=== PATIENT | male | born 1955 | race Caucasian/White ===

== ENCOUNTER 2023-08-29 15:05 | Emergency (ER) | payer OTHER, SELFPAY ==
[2023-08-29 15:09] VITALS: BP 173/102; PULSE 93; RESP 18; TEMP 36.5; O2SAT 98; BMI 25.8
--- NOTE | 2023-08-29 15:25 | ED_ITS ---
HPI - General Adult General Chief complaint: Skin/Abscess/Foreign Body Stated complaint: RASH Time Seen by Provider: 08/29/23 15:08 Source: patient and family Mode of arrival: walk-in History of Present Illness HPI narrative: This patient is here for evaluation of a skin rash. He has had it for over 2 months. He is seeing 2 nurse practitioners and his neurologist. He has been placed on low potency topical steroids twice. He does not and has not had any itching. He has not and does not have any pain or discomfort in the area. He is not running a fever. The area is self-limiting and has not gotten any bigger or any smaller but is got slightly accountant assistant in color with the current topical steroid. Does not have any other skin or dermatitis type condition. He has no other systemic symptoms or fever. He does describe scraping his arm on a piece of plumbing in his house but it did not bleed at the time. He also describe pulling weeds in his yard but never had any itching at the time or subsequent to that time. Related Data Allergies Allergy/AdvReac Type Severity Reaction Status Date / Time meperidine [From Demerol] Allergy Severe Verified 08/29/23 15:23 Penicillins Allergy Severe Verified 08/29/23 15:23 poison sumac extract Allergy Severe Verified 08/29/23 15:23 [facility] Medical History (Updated 08/29/23 @ 15:29 by Mainor Dumont MD) Parkinson disease ?G20.A1 - Parkinson's disease without dyskinesia, without mention of fluctuations (ICD-10) Exam Narrative Exam Narrative: Awake alert pleasant does have parkinsonism. He has normal vital signs does not appear ill his blood pressure slightly elevated. His skin and integument of trunk torso or extremities is completely normal with the exception of a mild erythematous area over the dorsum of his distal right forearm. It is not circumferential. There is no lymphangitis. It is not tender to the touch is not pruritic. It is not desquamating. There is no vesicles, there is no shingles type lesions. There is no clear vesicles. It is more of a angry erythematous nonraised rash Constitutional Vital Signs, click to edit/add: Last Vital Signs Temp 97.7 F 08/29/23 15:09 Pulse 93 H 08/29/23 15:09 Resp 18 08/29/23 15:09 BP 173/102 H 08/29/23 15:09 Pulse Ox 98 08/29/23 15:09 O2 Del Method Room Air 08/29/23 15:09 Course Vital Signs Vital signs: Vital Signs Temperature 97.7 F 08/29/23 15:09 Pulse Rate 93 H 08/29/23 15:09 Respiratory Rate 18 08/29/23 15:09 Blood Pressure 173/102 H 08/29/23 15:09 Pulse Oximetry 98 08/29/23 15:09 Oxygen Delivery Method Room Air 08/29/23 15:09 Temperature 97.7 F 08/29/23 15:09 Pulse Rate 93 H 08/29/23 15:09 Respiratory Rate 18 08/29/23 15:09 Blood Pressure 173/102 H 08/29/23 15:09 Pulse Oximetry 98 08/29/23 15:09 Oxygen Delivery Method Room Air 08/29/23 15:09 Medical Decision Making MDM Narrative Medical decision making narrative: This patient's been treated with topical steroids but weaker in nature. It is mostly consistent with a atopic type dermatitis. It does not look viral or bacterial in nature. Discharge Plan Discharge Chief Complaint: Skin/Abscess/Foreign Body Clinical Impression: Atopic dermatitis, unspecified Patient Disposition: Home, Self-Care Time of Disposition Decision: 15:29 Additional Instructions: Start betamethasone, stop other creams. Leave the area open at night and do not cover Referrals: ALEKSEY LAI [Primary Care Provider] - 1 week Stand Alone Forms: Portal Instructions
--- NOTE | 2023-08-29 15:25 | PC.NURSE ---
area to right wrist / right lower forearm is red. no drainage and not raised. area does not hurt or itch. pt reports area does not get bigger or smaller.
== END 2023-08-29 15:43 | disposition home or self-care (01) ==
PROVIDERS: Emergency Provider Emergency Medicine Emergency Medical Services; PCP Nurse Practitioner Family
DX: L20.9 Atopic dermatitis, unspecified (principal); G20.A1 Parkinson's disease without dyskinesia, without mention of fluctuations
CPT/HCPCS: 99283

== ENCOUNTER 2023-10-14 13:02 | Outpatient (RCR) | payer OTHER, SELFPAY | END 2023-10-29 16:55 | disposition home or self-care (01) | LOC: PT 13:02 | PROVIDERS: PCP Nurse Practitioner Family; Visit Provider Family Medicine | DX: M54.41 Lumbago with sciatica, right side (principal); G89.29 Other chronic pain ==

== ENCOUNTER 2023-10-22 12:34 | Outpatient (RCR) | payer OTHER, SELFPAY | END 2023-10-29 16:54 | disposition home or self-care (01) | LOC: PT 12:34 | PROVIDERS: PCP Nurse Practitioner Family; Visit Provider Nurse Practitioner Gerontology | DX: M54.42 Lumbago with sciatica, left side (principal); M54.41 Lumbago with sciatica, right side; G89.29 Other chronic pain; M51.27 Other intervertebral disc displacement, lumbosacral region | CPT/HCPCS: 97110; 97161 ==

== ENCOUNTER 2023-11-28 14:54 | Outpatient (RCR) | payer OTHER, SELFPAY | END 2023-11-30 16:59 | disposition home or self-care (01) | LOC: ST 14:54 | PROVIDERS: PCP Nurse Practitioner Family; Visit Provider Nurse Practitioner Gerontology | DX: G20.A1 Parkinson's disease without dyskinesia, without mention of fluctuations (principal); R13.13 Dysphagia, pharyngeal phase; R47.1 Dysarthria and anarthria | CPT/HCPCS: 92523 ==

== ENCOUNTER 2024-05-12 09:58 | Inpatient (IN) | payer OTHER, SELFPAY ==
[2024-05-12 10:03] VITALS: BP 117/76; PULSE 101; BMI 21.3
[2024-05-12 10:44] LABS: Bilirubin Urine NEGATIVE (NEGATIVE); Blood Urine NEGATIVE (NEGATIVE); Clarity Urine CLEAR (CLEAR); Color Urine YELLOW (YELLOW); Glucose Urine UA NEGATIVE (NEGATIVE); Ketones Urine NEGATIVE (NEGATIVE); Leukocyte Esterase Urine NEGATIVE (NEGATIVE); Nitrite Urine NEGATIVE (NEGATIVE); Protein Urine NEGATIVE (NEG/TRACE); Urine Microscopic Indicated NO; pH Urine 6.5 (5.0-9.0)
--- NOTE | 2024-05-12 10:50 | ED.GENADUL1 ---
HPI HPI - General Adult General Chief complaint: Weakness Stated complaint: URINARY PROBLEMS Time Seen by Provider: 05/12/24 10:01 Source: patient Mode of arrival: ambulance Limitations: no limitations History of Present Illness HPI narrative: Patient presents to ED complaining of generalized weakness and low back pain and difficulty urinating. Patient has a history of Parkinson's and he has severe tremors on exam. Patient states he used to be on medication for his Parkinson's but it made him unable to move and he said he did not tolerate the medications well. He states that he lives in an assisted living home and his girlfriend helps take care of him but he states that he needs more help being taken care of. He was seen yesterday at [facility] and discharged back to his assisted living center. He was seen there for weakness and a fall 3 days prior. He had a negative CT brain and negative CT lumbar spine. No acute fractures but he was complaining of tailbone pain. Today he complains of his tremors and he complains of difficulty urinating. He was able to urinate some but still felt like he had more in there. Ultrasound bladder scan at bedside shows about 120 cc in. Straight cath performed and urine was sent down for UA. Patient denies any new fall but states he is having trouble taking care of himself and even with the help of the girlfriend it is not going well. He denies any chest pain or shortness of breath. He has mild lower abdominal pain. No nausea or vomiting. Vital signs stable. He is a poor historian and a lot of this information was gathered from [facility] record that was sent over from yesterday. Related Data Home Medications ?Medication ?Instructions ?Recorded ?Confirmed cyclobenzaprine 10 mg tablet 10 mg PO TID 08/29/23 05/12/24 lisinopril 20 1 tab PO QAM 08/29/23 05/12/24 mg-hydrochlorothiazide 12.5 mg tablet acetaminophen 500 mg tablet 500 mg PO Q6H PRN pain 05/12/24 05/12/24 (Tylenol Extra Strength) aspirin 81 mg tablet,delayed 81 mg PO DAILY 05/12/24 05/12/24 release (Adult Low Dose Aspirin) bisacodyl 10 mg rectal suppository 10 mg MO DAILY PRN constipation 05/12/24 05/12/24 (Dulcolax (bisacodyl)) buspirone 5 mg tablet 5 mg PO BEDTIME 05/12/24 05/12/24 diclofenac sodium 1 % topical gel 2 g topical TID PRN pain, moderate 05/12/24 05/12/24 docusate sodium 100 mg capsule 100 mg PO DAILY 05/12/24 05/12/24 (Colace) escitalopram oxalate 10 mg tablet 10 mg PO DAILY 05/12/24 05/12/24 famotidine 20 mg tablet 20 mg PO BID 05/12/24 05/12/24 magnesium oxide 400 mg PO DAILY 05/12/24 05/12/24 multivitamin,tx-minerals 1 tab PO DAILY 05/12/24 05/12/24 naproxen sodium 220 mg capsule 220 mg PO Q8H 05/12/24 05/12/24 (Aleve) polyethylene glycol 3350 17 17 g PO DAILY 05/12/24 05/12/24 gram/dose oral powder (ClearLax) sodium chloride 0.65 % nasal spray 1 spray intranasal QDAY 05/12/24 05/12/24 aerosol tamsulosin 0.4 mg capsule 0.4 mg PO DAILY 05/12/24 05/12/24 Allergies Allergy/AdvReac Type Severity Reaction Status Date / Time meperidine (From Demerol) Allergy Severe Rash Verified 05/12/24 10:21 Penicillins Allergy Severe Rash Verified 05/12/24 10:21 poison sumac extract Allergy Severe Rash Verified 05/12/24 10:21 primidone AdvReac Severe paralyzed Verified 05/12/24 12:25 Opioid HPI Opioid Management Most Recent Opioid Data: Last Pain Assessment 05/12/24 14:58 Last ORT Total Score 0 05/12/24 14:09 05/12/24 Last ORT Risk Category Low Risk 05/12/24 14:09 05/12/24 Review of Systems ROS Status of ROS unobtainable due to medical condition [facility] Medical History (Updated 05/12/24 @ 15:27 by Raya Lai DO) Dysphagia ?R13.10 - Dysphagia, unspecified (ICD-10) Muscle weakness (generalized) ?M62.81 - Muscle weakness (generalized) (ICD-10) Hyperlipidemia ?E78.5 - Hyperlipidemia, unspecified (ICD-10) Constipation ?K59.00 - Constipation, unspecified (ICD-10) GERD (gastroesophageal reflux disease) ?K21.9 - Gastro-esophageal reflux disease without esophagitis (ICD-10) HTN (hypertension) ?I10 - Essential (primary) hypertension (ICD-10) Anxiety disorder ?F41.9 - Anxiety disorder, unspecified (ICD-10) Parkinson disease ?G20.A1 - Parkinson's disease without dyskinesia, without mention of fluctuations (ICD-10) Surgical History (Updated 05/12/24 @ 14:28 by Glenis Sims RN) Hx of tonsillectomy ?Z90.89 - Acquired absence of other organs (ICD-10) History of cholecystectomy ?Z90.49 - Acquired absence of other specified parts of digestive tract (ICD-10) Family History (Updated 05/12/24 @ 14:29 by Glenis Sims RN) Brother Family history of diabetes mellitus Sister Family history of CHF (congestive heart failure) Social History (Updated 05/12/24 @ 14:28 by Glenis Sims RN) Within the past year, how often did you have a drink containing alcohol: never Score interpretation: A score less than 4 is consistent with normal alcohol consumption. Smoking status: Former smoker Non-prescribed substance use: denies use Highest level of school completed/degree received: high school graduate Little interest or pleasure in doing things: not at all Feeling down, depressed, or hopeless: not at all Exam Narrative Exam Narrative: Time Seen: [] Vital Signs: [Per nurse's notes.] General: [Alert] slightly lethargic Skin: [Warm, dry, no rash.] Head: [Normocephalic, atraumatic.] Neck: [Supple, trachea midline.] Eye: [Pupils are equal, round and reactive to light, extraocular movements are intact, normal conjunctiva.] Ears, nose, mouth and throat: oral mucosa slightly dry. Patient feels like his tongue is swollen but on exam there is no swelling of the tongue. Cardiovascular: [Regular rate and rhythm, no murmur.] Respiratory: Slightly diminished breath sounds bilateral bases, respirations are non-labored, breath sounds are equal.] Chest wall: [No tenderness, no deformity.] Gastrointestinal: [Soft, mild suprapubic tenderness non distended, normal bowel sounds.] MSK: Tremors x 4 extremities, no calf pain or edema Lymphatics: [No lymphadenopathy.] Psychiatric: [Cooperative, appropriate mood & affect.] Neurological: [Alert and oriented to person, place, time, and situation, no focal neurological deficit observed.] Constitutional Vital Signs, click to edit/add: Last Vital Signs Temp 98.3 F 05/12/24 14:09 Pulse 82 05/12/24 14:09 Resp 18 05/12/24 14:09 BP 158/88 H 05/12/24 14:09 Pulse Ox 95 05/12/24 14:09 O2 Del Method Room Air 05/12/24 14:09 Course Vital Signs Vital signs: Vital Signs Pulse Rate 101 H 05/12/24 10:03 Respiratory Rate 20 05/12/24 10:03 Blood Pressure 117/76 05/12/24 10:03 Temperature 98.3 F 05/12/24 14:09 Pulse Rate 82 05/12/24 14:09 Respiratory Rate 18 05/12/24 14:09 Blood Pressure 158/88 H 05/12/24 14:09 Pulse Oximetry 95 05/12/24 14:09 Oxygen Delivery Method Room Air 05/12/24 14:09 Medical Decision Making MDM Narrative Medical decision making narrative: Patient has Parkinson's that is very poorly controlled. It is causing him to fall multiple times and is a safety issue at this point. He can no longer live alone even with assisted living his girlfriend said it is too much for him to be taken care of. Patient most likely needs to be placed into a higher level of care. Patient is feeling slightly better after the Ativan and the tremors have slowed a little bit. Patient's labs are relatively nonacute. Repeat CT scan of the head does not show any bleed. CT abdomen pelvis does not show any acute abnormality. Patient will be admitted to Dr. Nguyen for further care and most likely placement. Differential Diagnosis Differential Diagnosis: Parkinson's, weakness, falls Medical Records Medical records reviewed: Yes I reviewed the patient's medical records Lab Data Lab results reviewed: Yes I reviewed the patient's lab results Labs: Lab Results 05/12/24 05/12/24 Range/Units 10:25 10:42 WBC 6.9 (4.0-11.0) 10^3/uL RBC 3.41 L (4.70-6.10) 10^6/uL Hgb 11.7 L (14.0-18.0) g/dL Hct 33.9 L (42.0-54.0) % MCV 99.4 H (80.0-94.0) fL MCH 34.3 H (25.9-34.0) pg MCHC 34.5 (29.9-35.2) g/dL RDW 11.8 (11.0-15.0) % Plt Count 253 (150-450) 10^3/uL MPV 9.8 (9.5-13.5) fL Neut % (Auto) 71.4 (43.0-75.0) % Lymph % (Auto) 18.4 L (20.5-60.0) % [place] % (Auto) 5.5 (1.7-12.0) % Eos % (Auto) 3.9 (0.9-7.0) % Baso % (Auto) 0.7 (0.2-2.0) % Neut # (Auto) 4.9 (1.4-6.5) 10^3/uL Lymph # (Auto) 1.3 (1.2-3.8) 10^3/uL [place] # (Auto) 0.4 (0.3-0.8) 10^3/uL Eos # (Auto) 0.3 (0.0-0.7) 10^3/uL Baso # (Auto) 0.1 (0.0-0.1) 10^3/uL Abs Immat Gran (auto) 0.01 (0.00-0.03) 10^3/uL Imm/Tot Granulo (auto) 0.1 (0.0-0.5) % Sodium 143 (136-145) mmol/L Potassium 4.3 (3.5-5.1) mmol/L Chloride 106 (98-107) mmol/L Carbon Dioxide 26.9 (21.0-32.0) mmol/L Anion Gap 14.4 BUN 22.0 H (7.0-18.0) mg/dL Creatinine 0.99 (0.70-1.30) mg/dL Est GFR ( Amer) >60 (>=60 mL/min/1.73m^2) Est GFR (Non-Af Amer) >60 (>=60 mL/min/1.73m^2) BUN/Creatinine Ratio 22.2 Glucose 90 (74-106) mg/dL Calcium 9.2 (8.5-10.1) mg/dL Total Bilirubin 0.7 (0.2-1.0) mg/dL AST 25 (15-37) U/L ALT 12 L (16-63) U/L Alkaline Phosphatase 100 (46-116) U/L Total Protein 6.7 (6.4-8.2) g/dL Albumin 3.3 L (3.4-5.0) g/dL Globulin 3.4 g/dL Albumin/Globulin Ratio 1.0 Urine Color Yellow (YELLOW) Urine Clarity Clear (CLEAR) Urine pH 6.5 (5.0-9.0) Ur Specific Davy 1.020 (1.005-1.025) Urine Protein Negative (NEG/TRACE) mg/dL Urine Glucose (UA) Negative (NEGATIVE) mg/dL Urine Ketones Negative (NEGATIVE) mg/dL Urine Occult Blood Negative (NEGATIVE) Urine Nitrite Negative (NEGATIVE) Urine Bilirubin Negative (NEGATIVE) Urine Urobilinogen 4.0 A (0.2-1.0) EU/dL Ur Leukocyte Esterase Negative (NEGATIVE) Imaging Data CT scan - abdomen: Radiologist's impression: ITS Impressions Abdomen/Pelvis CT 05/12/24 11:00 IMPRESSION: No acute intraperitoneal abnormality Electronically authenticated by: AYLA MARADIAGA Date: 05/12/2024 12:[address] 05/12/24 12:30 IMPRESSION: No acute intracranial abnormalities. Electronically authenticated by: AUSTIN VILCHIS Date: 05/12/2024 13:02 Discharge Plan Discharge Chief Complaint: Weakness Clinical Impression: Parkinson disease, Falls frequently, Weakness Patient Disposition: Admitted as Observation Time of Disposition Decision: 15:27 Condition: Fair Discharge Date/Time: 05/12/24 13:57
[2024-05-12 10:52] LABS: Basophils Absolute Auto 0.1 10^3/uL (0.0-0.1); Basophils Percent Auto 0.7 % (0.2-2.0); Eosinophils Absolute Auto 0.3 10^3/uL (0.0-0.7); Eosinophils Percent Auto 3.9 % (0.9-7.0); Hematocrit 33.9 % (42.0-54.0); Hemoglobin 11.7 g/dL (14.0-18.0); Immature Granulocytes Abs Auto 0.01 10^3/uL (0.00-0.03); Immature Granulocytes Pct Auto 0.1 % (0.0-0.5); Lymphocytes Absolute Auto 1.3 10^3/uL (1.2-3.8); Lymphocytes Percent Auto 18.4 % (20.5-60.0); Mean Corpuscular HGB Conc 34.5 g/dL (29.9-35.2); Mean Corpuscular Hemoglobin 34.3 pg (25.9-34.0); Mean Corpuscular Volume 99.4 fL (80.0-94.0); Mean Platelet Volume 9.8 fL (9.5-13.5); Monocytes Absolute Auto 0.4 10^3/uL (0.3-0.8); Monocytes Percent Auto 5.5 % (1.7-12.0); Neutrophils Absolute Auto 4.9 10^3/uL (1.4-6.5); Neutrophils Percent Auto 71.4 % (43.0-75.0); Platelet Count 253 10^3/uL (150-450); Red Blood Count 3.41 10^6/uL (4.70-6.10); Red Cell Distribution Width 11.8 % (11.0-15.0); White Blood Count 6.9 10^3/uL (4.0-11.0)
--- NOTE | 2024-05-12 11:00 | CT_ITS ---
[address] [address] Patient Name: PENELOPE CHERRY MRN: [id number] date: 1955 Sex: M Assigned Patient Location: ER Current Patient Location: ER Accession/Order Number: [id number] Exam Date: 05/12/2024 11:30 Report Date: 05/12/2024 12:11 At the request of: JOSUE TRINIDAD Procedure: CT abdomen pelvis wo con EXAMINATION: CT abdomen pelvis wo con HISTORY: abd pain COMPARISON: No relevant comparison available. TECHNIQUE: Axial, Coronal, and Sagittal images were created without IV contrast. Dose reduction techniques were achieved by using automated exposure control and/or adjustment of mA and/or kV according to patient size and/or use of iterative reconstruction technique. FINDINGS: LUNG BASES: No visible pulmonary or pleural disease. Coronary atherosclerosis LIVER: No enlargement, atrophy, abnormal density, or significant focal lesion. BILIARY: The gallbladder is absent PANCREAS: Pancreatic atrophy SPLEEN: No enlargement or focal lesion. ADRENALS: No mass or enlargement. KIDNEYS: No mass, obstruction, or calcification. BOWEL/MESENTERY: Moderate amount of stool in the rectum and descending colon. Nonobstructive bowel gas pattern. Suture line with the cecum suggest prior appendectomy AORTA/VASCULAR: No aortic aneurysm. Extensive atherosclerosis RETROPERITONEUM: No mass or adenopathy. LYMPH NODES: No adenopathy. URINARY BLADDER: No visible focal wall thickening, lesion, or calculus. PELVIC ORGANS: No visible mass. Pelvic organs appropriate for patient age. ABDOMINAL WALL: No mass or hernia. BONES: No bony lesion or fracture. OTHER: Negative. CT/CT abdomen pelvis wo con IMPRESSION: No acute intraperitoneal abnormality Electronically authenticated by: AYLA MARADIAGA Date: 05/12/2024 12:11
[2024-05-12] MEDS: LORAZEPAM 2 MG/ML VIAL 0.5 MG IV (11:07)
[2024-05-12 11:10] LABS: Alanine Aminotransferase 12 U/L (16-63); Albumin Level 3.3 g/dL (3.4-5.0); Alkaline Phosphatase 100 U/L (46-116); Anion Gap 14.4; Aspartate Amino Transferase 25 U/L (15-37); BUN Creatinine Ratio 22.2; Bilirubin Total 0.7 mg/dL (0.2-1.0); Calcium 9.2 mg/dL (8.5-10.1); Carbon Dioxide 26.9 mmol/L (21.0-32.0); Chloride 106 mmol/L (98-107); Estimated GFR (African America >60 (>=60 mL/min/1.73m^2); Estimated GFR (Non-African Ame >60 (>=60 mL/min/1.73m^2); Globulin 3.4 g/dL; Glucose 90 mg/dL (74-106); Potassium 4.3 mmol/L (3.5-5.1); Sodium 143 mmol/L (136-145); Total Protein 6.7 g/dL (6.4-8.2)
--- NOTE | 2024-05-12 12:30 | CT_ITS ---
The [address] [address] Patient Name: PENELOPE CHERRY MRN: [id number] date: 1955 Sex: M Assigned Patient Location: ER Current Patient Location: ER Accession/Order Number: [id number] Exam Date: 05/12/2024 12:40 Report Date: 05/12/2024 13:02 At the request of: JOSUE TRINIDAD Procedure: CT head/brain wo con EXAM: CT scan of the head without contrast. Dose reduction technique used: Automated exposure control and/or adjustment of the mA and/or kV according to patient size and/or use of iterative reconstruction technique. REASON FOR EXAM: Altered mental status COMPARISON: None FINDINGS: No intracranial hemorrhage, mass effect, midline shift, fractures or evidence of acute ischemic infarct. No hydrocephalus. Minimal generalized cerebral and cerebellar volume loss. Minimal small vessel gliosis. Paranasal sinuses and mastoid air cells are clear. Remainder unremarkable. CT/CT head/brain wo con IMPRESSION: No acute intracranial abnormalities. Electronically authenticated by: AUSTIN VILCHIS Date: 05/12/2024 13:02
--- NOTE | 2024-05-12 12:56 | PC.NURSE ---
This RN received a call from Amber at [facility] . She reassured pt that his apartment is al locked up and that they have his keys . Pt asked her several questions that she answered. She is aware that he is going to be admitted.
[2024-05-12 13:55] VITALS: BP 147/90; PULSE 84; TEMP 37.1; O2SAT 95
[2024-05-12 14:09] VITALS: BP 158/88; PULSE 82; TEMP 36.8; O2SAT 95; BMI 21.2
--- NOTE | 2024-05-12 15:14 | P.HP_ITS ---
HPI H&P: HPI History of Present Illness Chief complaint: URINARY PROBLEMS/PARKINSONS/WEAKNESS/FALLS Narrative: Patient presented to the emergency room with difficulty urinating. Also tremor has become much worse in the last couple of days. He has been tried on Mysoline for in the past but patient got locked up practically paralyzed from the description. Not tried on other medications for that. Recent change in medications is required him to increase his prostate medication. Unable to void at all today. Patient has significant postvoid residual and is admitted for workup and treatment of same When I saw patient up on the medical surgical floor seem very uncomfortable, cecy mor very pronounced. Difficulty holding his phone. Unable to manipulate a text message. Opioid HPI Opioid Management Most Recent Pain and Opioid Data: Last Pain Assessment 05/12/24 16:50 Last ORT Total Score 0 05/12/24 14:09 05/12/24 Last ORT Risk Category Low Risk 05/12/24 14:09 05/12/24 Review of Systems ROS Status of ROS 10 or more systems reviewed and unremark able except as noted in history and below [facility] Medical History (Updated 05/12/24 @ 17:38 by Carlos Manuel Nguyen MD) Dysphagia ?R13.10 - Dysphagia, unspecified (ICD-10) Muscle weakness (generalized) ?M62.81 - Muscle weakness (generalized) (ICD-10) Hyperlipidemia ?E78.5 - Hyperlipidemia, unspecified (ICD-10) Constipation ?K59.00 - Constipation, unspecified (ICD-10) GERD (gastroesophageal reflux disease) ?K21.9 - Gastro-esophageal reflux disease without esophagitis (ICD-10) HTN (hypertension) ?I10 - Essential (primary) hypertension (ICD-10) Anxiety disorder ?F41.9 - Anxiety disorder, unspecified (ICD-10) Parkinson disease ?G20.A1 - Parkinson's disease without dyskinesia, without mention of fluctuations (ICD-10) Surgical History Hx of tonsillectomy ?Z90.89 - Acquired absence of other organs (ICD-10) History of cholecystectomy ?Z90.49 - Acquired absence of other specified parts of digestive tract (ICD- 10) Family History Brother Family history of diabetes mellitus Sister Family history of CHF (congestive heart failure) Social History Within the past year, how often did you have a drink containing alcohol: never Score interpretation: A score less than 4 is consistent with normal alcohol consumption. Smoking status: Former smoker Non-prescribed substance use: denies use Highest level of school completed/degree received: high school graduate Little interest or pleasure in doing things: not at all Feeling down, depressed, or hopeless: not at all Meds Home Medications and Allergies Home Medications ?Medication ?Instructions ?Recorded ?Confirmed ?Type cyclobenzaprine 10 mg tablet 10 mg PO TID PRN muscle pain 08/29/23 05/12/24 History lisinopril 20 1 tab PO QAM 08/29/23 05/12/24 History mg-hydrochlorothiazide 12.5 mg tablet acetaminophen 500 mg tablet 500 mg PO Q6H PRN pain 05/12/24 05/12/24 History (Tylenol Extra Strength) aspirin 81 mg tablet,delayed 81 mg PO DAILY 05/12/24 05/12/24 History release (Adult Low Dose Aspirin) atorvastatin 20 mg tablet 20 mg PO .qhs 05/12/24 05/12/24 History bisacodyl 10 mg rectal suppository 10 mg [place] DAILY PRN constipation 05/12/24 05/12/24 History (Dulcolax (bisacodyl)) buspirone 5 mg tablet 5 mg PO BEDTIME 05/12/24 05/12/24 History diclofenac sodium 1 % topical gel 2 g topical TID PRN pain, moderate 05/12/24 05/12/24 History docusate sodium 100 mg capsule 100 mg PO DAILY 05/12/24 05/12/24 History (Colace) escitalopram oxalate 10 mg tablet 10 mg PO DAILY 05/12/24 05/12/24 History famotidine 20 mg tablet 20 mg PO BID 05/12/24 05/12/24 History magnesium oxide 400 mg PO DAILY 05/12/24 05/12/24 History multivitamin,tx-minerals 1 tab PO DAILY 05/12/24 05/12/24 History naproxen sodium 220 mg capsule 220 mg PO Q8H PRN pain 05/12/24 05/12/24 History (Aleve) polyethylene glycol 3350 17 17 g PO DAILY 05/12/24 05/12/24 History gram/dose oral powder (ClearLax) sodium chloride 0.65 % nasal spray 1 spray intranasal QDAY 05/12/24 05/12/24 History aerosol tamsulosin 0.4 mg capsule 0.4 mg PO DAILY 05/12/24 05/12/24 History Allergies Allergy/AdvReac Type Severity Reaction Status Date / Time meperidine (From Demerol) Allergy Severe Rash Verified 05/12/24 10:21 Penicillins Allergy Severe Rash Verified 05/12/24 10:21 poison sumac extract Allergy Severe Rash Verified 05/12/24 10:21 primidone AdvReac Severe paralyzed Verified 05/12/24 12:25 Exam Constitutional Vital Signs, click to edit/add: Last Vital Signs Temp 98.3 F 05/12/24 14:09 Pulse 82 05/12/24 14:09 Resp 18 05/12/24 14:09 BP 158/88 H 05/12/24 14:09 Pulse Ox 95 05/12/24 14:09 O2 Del Method Room Air 05/12/24 14:09 Documenting provider has reviewed patient's vital signs: yes Common normals: apparent distress (Moderate distress over her tremor) Exam limitations: altered mental status Chest Common normals: inspection of chest normal Cardio Common normals: regular rate and regular rhythm GI Common normals: Normal to inspection, nondistended, normoactive bowel sounds present, soft to palpation and non-tender Extremity Common normals: normal to inspection, full ROM and no clubbing, cyanosis or edema Neuro Common normals: oriented x3, CN's II-XII intact bilaterally and moves all extremities Results Labs Labs: Short CBC 05/12/24 Range/Units 10:42 WBC 6.9 (4.0-11.0) 10^3/uL Hgb 11.7 L (14.0-18.0) g/dL Hct 33.9 L (42.0-54.0) % Plt Count 253 (150-450) 10^3/uL BMP 05/12/24 10:42 Sodium 143 Potassium 4.3 Chloride 106 Carbon Dioxide 26.9 BUN 22.0 H Creatinine 0.99 Glucose 90 Calcium 9.2 Liver Function 05/12/24 Range/Units 10:42 Total Bilirubin 0.7 (0.2-1.0) mg/dL AST 25 (15-37) U/L ALT 12 L (16-63) U/L Alkaline Phosphatase 100 (46-116) U/L Albumin 3.3 L (3.4-5.0) g/dL Urine 05/12/24 Range/Units 10:25 Urine Color Yellow (YELLOW) Urine Clarity Clear (CLEAR) Urine pH 6.5 (5.0-9.0) Ur Specific [place] 1.020 (1.005-1.025) Urine Protein Negative (NEG/TRACE) mg/dL Urine Glucose (UA) Negative (NEGATIVE) mg/dL Assessment and Plan Assessment and Plan (1) Weakness: (2) Falls frequently: (3) Parkinson disease: (4) Muscle weakness (generalized): (5) Urinary retention: Plan Admission findings: Sinus tachycardia, uncontrolled hypertension, urinary retention and severe tremor secondary to Parkinson's disease. Acute urinary retention this may be secondary to the Lexapro so we will discontinue that, add Avodart to his Flomax. Monitor for signs of acute retention. Discussed his Parkinson's at some length, he has not been tried on other medications except for the Mysoline, will start patient on medications at a low dose. Depression-tried Wellbutrin. Iron deficiency anemia-watch daily Constipation-MiraLAX daily and 1 dose of lactulose Uncontrolled hypertension-improved somewhat since admission from hospital, as needed hydralazine Hypomagnesemia-supplement GERD-continue with home medications Admission status: Patient replaced in the observational time period. Physical t herapy to work with patient. Medications adjusted as outlined above. Reevaluate in a.m.
--- NOTE | 2024-05-12 15:42 | SWNOTE1 ---
SW met with pt to discuss dc needs. Pt lives at the [facility] and he has only been there since end of March. He was at [facility] for rehab prior to that. Prior to [facility] he was at home with his girlfriend. Pt asked if he had a fall AL? He voiced he did have a fall. He usually uses a walker, cane, or wheelchair. Pt does have Parkinson's. SW spoke with pt about rehab and the potential that rehab may be recommended again. He stated he wants to return to [place] and they are providing therapy to him. SW to check in to this. SW expressed that he may not be strong enough to return to [place]. Pt again voiced he wants to return to [place]. SW let him know that we can see how he does with therapy and go from there. Pt in agreement. SW did let him know that if he does need rehab, he does not have to go to [place]. Pt voiced understanding.
--- NOTE | 2024-05-12 15:53 | SWNOTE1 ---
JASON spoke to junior legal secretary at [facility]. She voiced when he moved in he was signed up to get therapy, but he refused so they did not see him. They use [facility] services. She stated if he returns they would just need an order for therapy and he can get therapy there. JASON advised that we will keep them updated with discharge plans.
[2024-05-12 16:18] LABS: Lactate/Lactic Acid 0.8 mmol/L (0.4-2.0); Magnesium 2.2 mg/dL (1.8-2.4); Thyroid Stimulating Hormone 1.276 uIU/mL (0.358-3.740)
[2024-05-12] MEDS: DUTASTERIDE 0.5 MG CAPSULE PO (17:16)
[2024-05-12 19:26] VITALS: BP 154/84; PULSE 69; TEMP 36.5; O2SAT 92
[2024-05-12 20:10] VITALS: O2SAT 96
[2024-05-12] MEDS: FAMOTIDINE 20 MG TABLET PO (21:06)
[2024-05-12] MEDS: CYCLOBENZAPRINE HCL 10 MG TABLET PO (21:07)
[2024-05-12] MEDS: CARBIDOPA/LEVODOPA 10 MG/100 MG TABLET 1 TAB PO (21:07)
[2024-05-12] MEDS: ATORVASTATIN CALCIUM 20 MG TABLET PO (21:07)
[2024-05-12] MEDS: BUPROPION HCL 150 MG XL TABLET 24H PO (21:07)
[2024-05-12] MEDS: BUSPIRONE HCL 10 MG TABLET 5 MG PO (21:07)
[2024-05-13] VITALS (8 sets, daily range): BP systolic 94–155; BP diastolic 60–90; PULSE 58–92; TEMP 36.4–36.7; O2SAT 93–97
--- NOTE | 2024-05-13 03:07 | PC.NURSE ---
05/12/20242119 Patient received dose of sinement. After med given patient states I'm allergic to that. When asked what his reaction is he states rash. Nurse checked med not listed as an allergy. When asked how long ago he was on it, he states a while ago . Reached out to telehospitalist LAISHA Maharaj. Told her patient claimed to be allergic to sinemet after medication administered. Telehospitalist asked nurse to reach out to family to see if they know if it is a true allergy. Nurse called patient's son Ambrose. He states he doesn't recall his dad ever being on sinemet. He states his dad has paronoia wiith his parkinson's and that dad's girlfriend will tell him the meds he's taken have horrific side effects so he stops taking them. Relayed this to telehospitalist and she states just to keep an eye on patient. 05/13/2024 0310 Patient remains resting with eyes closed. No s/s of rash, pain, or discomfort at this time.
[2024-05-13] MEDS: CARBIDOPA/LEVODOPA 10 MG/100 MG TABLET 1 TAB PO ×3 (06:12→21:04)
[2024-05-13] MEDS: CYCLOBENZAPRINE HCL 10 MG TABLET PO ×3 (06:12→21:05)
[2024-05-13] MEDS: DOXAZOSIN MESYLATE 2 MG TABLET PO ×2 (06:50→10:01)
[2024-05-13 06:59] LABS: Basophils Absolute Auto 0.1 10^3/uL (0.0-0.1); Basophils Percent Auto 0.9 % (0.2-2.0); Eosinophils Absolute Auto 0.6 10^3/uL (0.0-0.7); Eosinophils Percent Auto 8.2 % (0.9-7.0); Hematocrit 36.7 % (42.0-54.0); Hemoglobin 12.1 g/dL (14.0-18.0); Immature Granulocytes Abs Auto 0.02 10^3/uL (0.00-0.03); Immature Granulocytes Pct Auto 0.3 % (0.0-0.5); Lymphocytes Absolute Auto 1.5 10^3/uL (1.2-3.8); Lymphocytes Percent Auto 19.8 % (20.5-60.0); Mean Corpuscular Hemoglobin 33.4 pg (25.9-34.0); Mean Corpuscular Volume 101.4 fL (80.0-94.0); Mean Platelet Volume 9.6 fL (9.5-13.5); Monocytes Absolute Auto 0.5 10^3/uL (0.3-0.8); Monocytes Percent Auto 6.7 % (1.7-12.0); Neutrophils Absolute Auto 4.8 10^3/uL (1.4-6.5); Neutrophils Percent Auto 64.1 % (43.0-75.0); Platelet Count 247 10^3/uL (150-450); Red Blood Count 3.62 10^6/uL (4.70-6.10); Red Cell Distribution Width 11.7 % (11.0-15.0); White Blood Count 7.6 10^3/uL (4.0-11.0)
[2024-05-13 07:17] LABS: Anion Gap 14.4; BUN Creatinine Ratio 24.3; Calcium 9.1 mg/dL (8.5-10.1); Carbon Dioxide 28.4 mmol/L (21.0-32.0); Chloride 105 mmol/L (98-107); Estimated GFR (African America >60 (>=60 mL/min/1.73m^2); Estimated GFR (Non-African Ame >60 (>=60 mL/min/1.73m^2); Glucose 78 mg/dL (74-106); Potassium 3.8 mmol/L (3.5-5.1); Sodium 144 mmol/L (136-145)
[2024-05-13 08:13] LABS: Vitamin B12 351 pg/mL (232-1245)
--- NOTE | 2024-05-13 08:50 | CM.NOTE ---
Rounds made with Dr. Nguyen, pt will remain in OBS status. PT and OT will evaluate pt today for discharge planning.
--- NOTE | 2024-05-13 09:51 | P.DS_ITS ---
DS: Providers Provider Date of admission: 05/12/24 13:57 Primary care physician: DUSTIN KELLEY Consults: 05/12/24 Consult to Dietitian Routine Reason for consultation: weight loss 05/12/24 15:17 Occupational Therapy Eval and Treat Routine Reason for consultation: Only if needed for Rehab Has provider been notified: No Physical Therapy Eval and Treat Routine Reason for consultation: Eval and Treat Has provider been notified: No 05/12/24 15:22 Consult to Cotton Tipper Routine Reason for consult:: Long Term DS: Diagnosis Discharge Diagnosis (1) Weakness: (2) Falls frequently: (3) Parkinson disease: (4) Muscle weakness (generalized): (5) Urinary retention: Plan Admission findings: Sinus tachycardia, uncontrolled hypertension, urinary retention and severe tremor secondary to Parkinson's disease. Acute urinary retention this may be secondary to the Lexapro so we will discontinue that, add Avodart to his Flomax. Monitor for signs of acute retention. Discussed his Parkinson's at some length, he has not been tried on other medications except for the Mysoline, will start patient on medications at a low dose. Depression-tried Wellbutrin. Iron deficiency anemia-watch daily Constipation-MiraLAX daily and 1 dose of lactulose Uncontrolled hypertension-improved somewhat since admission from hospital, as needed hydralazine Hypomagnesemia-supplement GERD-continue with home medications Admission status: Patient replaced in the observational time period. Physical therapy to work with patient. Medications adjusted as outlined above. Reevaluate in a.m. ? DS: Summary Status at Discharge Overall status at discharge: patient is back to baseline Time Spent with Patient Time attestation: Total time spent providing and/or coordinating discharge services: Time spent: greater than 30 minutes Exam Constitutional Vital Signs, click to edit/add: Last Vital Signs Temp 97.8 F 05/13/24 07:58 Pulse 65 05/13/24 08:00 Resp 16 05/13/24 08:00 BP 144/84 H 05/13/24 07:58 Pulse Ox 96 05/13/24 07:58 O2 Del Method Room Air 05/13/24 07:58 DS: Data Data Completed and Pending Labs on day of discharge: Labs from last 24 hours 05/13/24 05/12/24 05/12/24 06:16 10:42 10:25 WBC 7.6 6.9 RBC 3.62 L 3.41 L Hgb 12.1 L 11.7 L Hct 36.7 L 33.9 L MCV 101.4 H 99.4 H MCH 33.4 34.3 H MCHC 33.0 34.5 RDW 11.7 11.8 Plt Count 247 253 MPV 9.6 9.8 Neut % (Auto) 64.1 71.4 Lymph % (Auto) 19.8 L 18.4 L [place] % (Auto) 6.7 5.5 Eos % (Auto) 8.2 H 3.9 Baso % (Auto) 0.9 0.7 Neut # (Auto) 4.8 4.9 Lymph # (Auto) 1.5 1.3 [place] # (Auto) 0.5 0.4 Eos # (Auto) 0.6 0.3 Baso # (Auto) 0.1 0.1 Abs Immat Gran (auto) 0.02 0.01 Imm/Tot Granulo (auto) 0.3 0.1 Sodium 144 143 Potassium 3.8 4.3 Chloride 105 106 Carbon Dioxide 28.4 26.9 Anion Gap 14.4 14.4 BUN 25.0 H 22.0 H Creatinine 1.03 0.99 Est GFR ( Amer) >60 >60 Est GFR (Non-Af Amer) >60 >60 BUN/Creatinine Ratio 24.3 22.2 Glucose 78 90 Lactate 0.8 Calcium 9.1 9.2 Magnesium 2.2 Total Bilirubin 0.7 AST 25 ALT 12 L Alkaline Phosphatase 100 Total Protein 6.7 Albumin 3.3 L Globulin 3.4 Albumin/Globulin Ratio 1.0 Vitamin B12 351 Folate 18.80 TSH 1.276 Thyroxine (T4) 7.30 Urine Color Yellow Urine Clarity Clear Urine pH 6.5 Ur Specific [place] 1.020 Urine Protein Negative Urine Glucose (UA) Negative Urine Ketones Negative Urine Occult Blood Negative Urine Nitrite Negative Urine Bilirubin Negative Urine Urobilinogen 4.0 A Ur Leukocyte Esterase Negative Discharge Plan Discharge Disposition: Xfer SNF Condition: Fair Discharge Medications: New cyclobenzaprine 10 mg Tablet 10 mg PO TID Qty: 90 11RF doxazosin 2 mg Tablet 2 mg PO QD Qty: 30 11RF dutasteride 0.5 mg Capsule 0.5 mg PO Q24H Qty: 30 11RF bupropion HCl 150 mg Tablet Extended Release 24 Hr 150 mg PO QHS Qty: 30 11RF ondansetron 4 mg tablet,disintegrating 4 mg PO Q6H PRN (Reason: nausea and vomiting) Qty: 30 11RF Continued famotidine 20 mg tablet 20 mg PO BID tamsulosin 0.4 mg capsule 0.4 mg PO DAILY naproxen sodium [Aleve] 220 mg capsule 220 mg PO Q8H PRN (Reason: pain) aspirin [Adult Low Dose Aspirin] 81 mg tablet,delayed release (DR/EC) 81 mg PO DAILY docusate sodium [Colace] 100 mg capsule 100 mg PO DAILY bisacodyl [Dulcolax (bisacodyl)] 10 mg suppository 10 mg [place] DAILY PRN (Reason: constipation) magnesium oxide 400 mg magnesium capsule 400 mg PO DAILY polyethylene glycol 3350 [ClearLax] 17 gram/dose powder 17 g PO DAILY multivitamin,tx-minerals Tablet 1 tab PO DAILY acetaminophen [Tylenol Extra Strength] 500 mg tablet 500 mg PO Q6H PRN (Reason: pain) diclofenac sodium 1 % gel 2 g topical TID PRN (Reason: pain, moderate) Rx Instructions: apply to single elbow, wrist or hand; for hand includes palm/fingers/back of hand sodium chloride 0.65 % aerosol,spray 1 spray intranasal QDAY atorvastatin 20 mg tablet 20 mg PO .qhs lisinopril-hydrochlorothiazide 20-12.5 mg tablet 1 tab PO QAM Discontinued buspirone 5 mg tablet 5 mg PO BEDTIME escitalopram oxalate 10 mg tablet 10 mg PO DAILY cyclobenzaprine 10 mg tablet 10 mg PO TID PRN (Reason: muscle pain) Print Language: [place] Forms: Portal Instructions
[2024-05-13] MEDS: FAMOTIDINE 20 MG TABLET PO ×2 (10:00→21:04)
[2024-05-13] MEDS: LISINOPRIL/HYDROCHLOROTHIAZIDE 20-12.5 MG TABLET 1 TAB PO (10:00)
[2024-05-13] MEDS: MAGNESIUM OXIDE 400 MG TABLET PO (10:00)
[2024-05-13] MEDS: POLYETHYLENE GLYCOL 3350 17 GM POWDER PACKET PO (10:00)
[2024-05-13] MEDS: SODIUM CHLORIDE 0.65% OCEAN NASAL SPRAY 1 SPRAY NS (10:00)
[2024-05-13] MEDS: ASPIRIN 81 MG TABLET.DR PO (10:00)
[2024-05-13] MEDS: TAMSULOSIN HCL 0.4 MG CAPSULE PO (10:01)
[2024-05-13] MEDS: MULTIVITAMIN TABLET 1 TAB PO (10:01)
--- NOTE | 2024-05-13 14:02 | SWNOTE1 ---
PT/OT recommended SNF. SW went in to speak with pt and his son was on phone as well. Son's name is Peyman. SW spoke to them about rehab being recommended. Pt's son in agreement. Pt's son was at [facility] and got the Director of [facility] on phone as well. She was in agreement and let pt know that they hold the bed for 90 days and he can come back when stronger. She stated he has to be able to walk without assistance at the [place]. Pt voiced understanding and agreed to rehab. Pt and son do not want him to go back to [place]. SW let them know that [facility] and [facility] take [facility]. Pt and son are good with either facility, as they do not want to go any further so they can visit pt. [facility] was first choice. SW reached out to [facility] and they only have semi-privates, and they do not have any male semi privates available. SW reached out to [facility] and at first said no beds, but then voiced they will review and see if they can make it work. Referral sent to [facility]. Referral included face sheet, ED note, H&P, provider notes, case management report, nursing notes, diagnostic imaging, med list, and PT/OT notes.
--- NOTE | 2024-05-13 14:06 | SWNOTE1 ---
Medicare Outpatient Observation Notice reviewed and discussed with patient and pt's son on phone. Pt's son verbalized understanding and SW signed the form that it was reviewed and no questions. Original placed in patient's room and copy placed in patient?s chart.
--- NOTE | 2024-05-13 14:38 | SWNOTE1 ---
JASON received a message back from Pari at [facility] and they are able to accept and will start precert. JASON let pt and pt's son know that [facility] has accepted and started precert. JASON updated nurse and doctor.
--- NOTE | 2024-05-13 15:47 | SWNOTE1 ---
[facility] is able to accept and started precert.
--- NOTE | 2024-05-13 19:07 | DIETREC ---
Diet consult completed. Pt states he recently moved to assisted living and the food there is awful. He likely does not eat a balanced diet, but is willing to try supplements. Recommend 237 mL Ensure Original BID for added nutrients. Will continue to follow PRN.
--- NOTE | 2024-05-13 19:20 | P.PN_ITS ---
Progress Note: Subjective Subjective Interval history: No new complaints today. When I entered the room, patient was sleeping, awakened easily but his tremor was better, of course increased with activity. Exam Constitutional Vital Signs, click to edit/add: Last Vital Signs Temp 97.8 F 05/13/24 13:51 Pulse 84 05/13/24 13:51 Resp 20 05/13/24 13:51 BP 94/60 05/13/24 13:51 Pulse Ox 93 L 05/13/24 13:51 O2 Del Method Room Air 05/13/24 13:51 Documenting provider has reviewed patient's vital signs: yes Common normals: apparent distress (Moderate distress over her tremor) Exam limitations: altered mental status Chest Common normals: inspection of chest normal Cardio Common normals: regular rate and regular rhythm GI Common normals: Normal to inspection, nondistended, normoactive bowel sounds present, soft to palpation and non-tender Extremity Common normals: normal to inspection, full ROM and no clubbing, cyanosis or edema Neuro Common normals: oriented x3, CN's II-XII intact bilaterally and moves all extremities Progress Note: Objective Labs Labs: Short CBC 05/13/24 Range/Units 06:16 WBC 7.6 (4.0-11.0) 10^3/uL Hgb 12.1 L (14.0-18.0) g/dL Hct 36.7 L (42.0-54.0) % Plt Count 247 (150-450) 10^3/uL BMP 05/13/24 06:16 Sodium 144 Potassium 3.8 Chloride 105 Carbon Dioxide 28.4 BUN 25.0 H Creatinine 1.03 Glucose 78 Calcium 9.1 Progress Note: A&P Assessment and Plan (1) Weakness: (2) Falls frequently: (3) Parkinson disease: (4) Muscle weakness (generalized): (5) Urinary retention: Plan Admission findings: Sinus tachycardia, uncontrolled hypertension, urinary retention and severe tremor secondary to Parkinson's disease. Acute urinary retention this may be secondary to the Lexapro so we will disco juanis that, continue with Michelle Meyer Flomax-so far no issues. Discussed his Parkinson's at some length, he has not been tried on other medications except for the Mysoline, will start patient on medications at a low dose. So far tolerating the medication. This is obviously a long-term process. Depression-tried Wellbutrin. Iron deficiency anemia-watch daily Constipation-MiraLAX daily and 1 dose of lactulose Uncontrolled hypertension-improved somewhat since admission from hospital, as needed hydralazine Unsteadiness of gait secondary to the Parkinson's-patient medically benefit to go to rehab. Hypomagnesemia-supplement GERD-continue with home medications Admission status: Patient replaced in the observational time period. Patient is treatment over the initial overnight stay, failed to improve overall. Need to continue to address medications and intensive monitoring intensive work with physical therapy. Having failed initial observational time. He will be changed to inpatient status. ?
[2024-05-13] MEDS: ATORVASTATIN CALCIUM 20 MG TABLET PO (21:04)
[2024-05-13] MEDS: DUTASTERIDE 0.5 MG CAPSULE PO (21:04)
[2024-05-13] MEDS: BUPROPION HCL 150 MG XL TABLET 24H PO (21:04)
[2024-05-13] MEDS: ACETAMINOPHEN 500 MG TABLET 1000 MG PO (21:05)
[2024-05-13] MEDS: BUSPIRONE HCL 10 MG TABLET 5 MG PO (21:05)
[2024-05-14] VITALS (14 sets, daily range): BP systolic 63–131; BP diastolic 44–81; PULSE 63–97; TEMP 36.4–37; O2SAT 95–98
[2024-05-14] MEDS: CARBIDOPA/LEVODOPA 10 MG/100 MG TABLET 1 TAB PO ×2 (05:59→21:46)
--- NOTE | 2024-05-14 08:23 | CM.NOTE ---
Rounds made with Dr. Nguyen. Continue with plan of care. All questions answered by Dr. Nguyen.
[2024-05-14] MEDS: POLYETHYLENE GLYCOL 3350 17 GM POWDER PACKET PO (08:25)
[2024-05-14] MEDS: LISINOPRIL/HYDROCHLOROTHIAZIDE 20-12.5 MG TABLET 1 TAB PO (08:25)
[2024-05-14] MEDS: FAMOTIDINE 20 MG TABLET PO ×2 (08:27→21:43)
[2024-05-14] MEDS: ASPIRIN 81 MG TABLET.DR PO (08:27)
[2024-05-14] MEDS: MULTIVITAMIN TABLET 1 TAB PO (08:27)
[2024-05-14] MEDS: TAMSULOSIN HCL 0.4 MG CAPSULE PO (08:27)
[2024-05-14] MEDS: MAGNESIUM OXIDE 400 MG TABLET PO (08:27)
[2024-05-14] MEDS: DOXAZOSIN MESYLATE 2 MG TABLET PO (08:32)
--- NOTE | 2024-05-14 09:16 | SWNOTE1 ---
Pt is approved to go to [facility].
--- NOTE | 2024-05-14 09:45 | P.DS_ITS ---
DS: Providers Provider Date of admission: 05/13/24 19:22 Primary care physician: DUSTIN KELLEY Consults: 05/12/24 Consult to Dietitian Routine Reason for consultation: weight loss 05/12/24 15:17 Occupational Therapy Eval and Treat Routine Reason for consultation: Only if needed for Rehab Has provider been notified: No Physical Therapy Eval and Treat Routine Reason for consultation: Eval and Treat Has provider been notified: No 05/12/24 15:22 Consult to Material Manager Routine Reason for consult:: Group Home DS: Diagnosis Discharge Diagnosis (1) Weakness: (2) Falls frequently: (3) Parkinson disease: (4) Muscle weakness (generalized): (5) Urinary retention: Plan Admission findings: Sinus tachycardia, uncontrolled hypertension, urinary retention and severe tremor secondary to Parkinson's disease. Acute urinary retention this may be secondary to the Lexapro so we will discontinue that, continue with Cardura, Avodart, Flomax-so far no issues. Discussed his Parkinson's at some length, he has not been tried on other medications except for the Mysoline, will start patient on medications at a low dose. So far tolerating the medication. This is obviously a long-term process. Depression-tried Wellbutrin. Iron deficiency anemia-watch daily Constipation-MiraLAX daily and 1 dose of lactulose Uncontrolled hypertension-improved somewhat since admission from hospital, as needed hydralazine Unsteadiness of gait secondary to the Parkinson's-patient medically benefit to go to rehab. Hypomagnesemia-supplement GERD-continue with home medications Admission status: Patient replaced in the observational time period. Patient is treatment over the initial overnight stay, failed to improve overall. Need to continue to address medications and intensive monitoring intensive work with physical therapy. Having failed initial observational time. He will be changed to inpatient status. ? DS: Summary Hospital Course Hospital Course: Patient mated with bladder outlet obstruction. Also severe tremor and difficulty ambulating secondary to that. Not being treated currently with any medications for his Parkinson's. While in the hospital we did start low-dose carbidopa levodopa. Adjusted medications do not affect his prostate by stopping the Lexapro. Added Cardura for blood pressure control added Avodart to improved for the bladder outlet obstruction. He is improved. He notices his tremor is less. Still persisting but improved. Difficulty ambulating on significant weakness so unable to be discharged back to his assisted living facility. At this point he is medically stable for discharge. Medication status. Follow-up PCP at rehab facility. Status at Discharge Overall status at discharge: patient is not back to baseline Time Spent with Patient Time attestation: Total time spent providing and/or coordinating discharge services: Time spent: greater than 30 minutes Exam Constitutional Vital Signs, click to edit/add: Last Vital Signs Temp 97.5 F L 05/14/24 07:52 Pulse 70 05/14/24 07:52 Resp 16 05/14/24 07:52 BP 131/81 05/14/24 08:32 Pulse Ox 98 05/14/24 07:52 O2 Del Method Room Air 05/14/24 07:52 Documenting provider has reviewed patient's vital signs: yes Common normals: apparent distress (Moderate distress over her tremor) Exam limitations: altered mental status Chest Common normals: inspection of chest normal Cardio Common normals: regular rate and regular rhythm GI Common normals: Normal to inspection, nondistended, normoactive bowel sounds present, soft to palpation and non-tender Extremity Common normals: normal to inspection, full ROM and no clubbing, cyanosis or edema Neuro Common normals: oriented x3, CN's II-XII intact bilaterally and moves all extremities Discharge Plan Discharge Disposition: [facility] Condition: Fair Discharge Medications: New cyclobenzaprine 10 mg Tablet 10 mg PO TID Qty: 90 11RF doxazosin 2 mg Tablet 2 mg PO QD Qty: 30 11RF dutasteride 0.5 mg Capsule 0.5 mg PO Q24H Qty: 30 11RF bupropion HCl 150 mg Tablet Extended Release 24 Hr 150 mg PO QHS Qty: 30 11RF ondansetron 4 mg tablet,disintegrating 4 mg PO Q6H PRN (Reason: nausea and vomiting) Qty: 30 11RF carbidopa-levodopa 10-100 mg Tablet 1 tab PO TID Qty: 90 11RF Continued famotidine 20 mg tablet 20 mg PO BID tamsulosin 0.4 mg capsule 0.4 mg PO DAILY naproxen sodium [Aleve] 220 mg capsule 220 mg PO Q8H PRN (Reason: pain) aspirin [Adult Low Dose Aspirin] 81 mg tablet,delayed release (DR/EC) 81 mg PO DAILY docusate sodium [Colace] 100 mg capsule 100 mg PO DAILY bisacodyl [Dulcolax (bisacodyl)] 10 mg suppository 10 mg RI DAILY PRN (Reason: constipation) magnesium oxide 400 mg magnesium capsule 400 mg PO DAILY polyethylene glycol 3350 [ClearLax] 17 gram/dose powder 17 g PO DAILY multivitamin,tx-minerals Tablet 1 tab PO DAILY acetaminophen [Tylenol Extra Strength] 500 mg tablet 500 mg PO Q6H PRN (Reason: pain) diclofenac sodium 1 % gel 2 g topical TID PRN (Reason: pain, moderate) Rx Instructions: apply to single elbow, wrist or hand; for hand includes palm/fingers/back of hand sodium chloride 0.65 % aerosol,spray 1 spray intranasal QDAY atorvastatin 20 mg tablet 20 mg PO .qhs lisinopril-hydrochlorothiazide 20-12.5 mg tablet 1 tab PO QAM Discontinued buspirone 5 mg tablet 5 mg PO BEDTIME escitalopram oxalate 10 mg tablet 10 mg PO DAILY cyclobenzaprine 10 mg tablet 10 mg PO TID PRN (Reason: muscle pain) Print Language: Wolof Forms: Portal Instructions
[2024-05-14] MEDS: SODIUM CHLORIDE 0.65% OCEAN NASAL SPRAY 1 SPRAY NS (10:42)
--- NOTE | 2024-05-14 10:50 | REH.PTDLY ---
Physical Therapy Daily Note PT Daily Note/Assess Start: 05/14/24 10:43 Freq: Status: Active Protocol: Document 05/14/24 10:00 NATHANIEL (Rec: 05/14/24 10:50 [facility] [id number]) Physical Therapy Daily Note/Assessment Time In 09:40 Time Out 10:00 Subjective Pt agreeable to PT, in bed upon arrival. No current complaints. Therapeutic Exercise Minutes (minutes) 9 Therapeutic Exercise Units 1 Therapeutic Exercise Treatment Instructed in B AROM LE supine exs 10x ea with AP, QS, SLR, hip abd, and heel slides for strength and mobility. Cues for pt to perform exs throughout full ROM for larger movements. Therapeutic Activity Minutes (minutes) 8 Therapeutic Activity Units 0 Therapeutic Activity Comments Pt sits up ind initially at quick pace, once sitting pt states he is dizzy. Cues for pt to keep eyes open and look out window. Dizziness does not get any better or worse. Pt reports he wants to stand. Sit to stand transfer Min A with pt holding onto RW once upright. Pt states dizziness is worse and he feels like he is blacking out. Returned pt to supine position and symptoms improve. Pt insists on sitting up again even after education on orthostatic hypotension. Cues for pt to slowly rise into seated position with Min A. Pt initially states he feels better, then he becomes dizzy again. Pt returns to supine position. Total Therapy Minutes 17 Total Physical Therapy Units 1 Daily Note Summary Pt becomes too dizzy with transfers to be able to ambulate or perform any exs in other positions other than supine. Pt continues to state he wants to get up and move. Educated pt it is not safe at this time to do so if pt is blacking out when he stands. Pt begging therapist to let him get up again. Told pt I would let him rest and return in 30 mins. Spoke with his nurse Nisha about current state.
[2024-05-14] MEDS: 0.9 % SODIUM CHLORIDE 500 ML IV (10:57)
--- NOTE | 2024-05-14 11:36 | SWNOTE1 ---
JASON messaged doctor and pt will be discharged today. JASON spoke to nurse and maicol recommended for transport as pt is not able to stand at this time. Pt has Parkinsons. JASON called and set up [facility] and they will be here at 2:30pm. JASON notified nurse, patient, and [facility] of time. Pt is going skilled to [facility]. JASON spoke to pt's son, Peyman, earlier and let him know pt was approved and that patient wants his dentures, clothes, and protein drinks. Pt's son is aware and he will have someone bring them out. Pt's son does not need a call back with a time he will reach out to patient later. JASON faxed dc med rec and dc summary to [facility]. JASON completed HENS.
--- NOTE | 2024-05-14 11:51 | REH.PTDLY ---
Physical Therapy Daily Note PT Daily Note/Assess Start: 05/14/24 10:43 Freq: Status: Active Protocol: Document 05/14/24 10:50 NATHANIEL (Rec: 05/14/24 11:51 NATHANIEL [id number]) Physical Therapy Daily Note/Assessment Time In 10:25 Time Out 10:50 Subjective Returned to room with nursing. BP checked and it is 91/58 in supine. Nursing tries to educate pt as to this is why he's having these dizzy symptoms when getting up and transferring out of bed due to his BP being too low. Pt insists he gets tries to get up again. Therapeutic Activity Minutes (minutes) 10 Therapeutic Activity Units 1 Therapeutic Activity Comments Min A with supine to sit transfer to help pt slowly rise, rather than sitting up too quickly like he initially did earlier. Attempted taking BP sitting bedside, but pt's tremors are increasing as he sits with therapist trying to steady arm, BP cuff is not reading. Pt has good seated balance with no UE support needed on bed to maintain upright posture. Pt states he is not feeling well. Pt stood for 30 seconds Min A while nursing fixes sheet under him and returned pt to supine position with Min A. Pt states he just doesn't feel right when he is getting up. Nursing again trying to educate that it is most likely due to orthostatic hypotension. Total Therapy Minutes 10 Total Physical Therapy Units 1 Daily Note Summary Dizziness continues to be the limiting factor with performing PT due to safety concern. Pt continues to state after he returns to supine that he would like to try to get up again. Pt is not safe for gait training until low BP is under control.
--- NOTE | 2024-05-14 12:05 | SWNOTE1 ---
SW stopped in to let pt know time he was leaving. Pt in agreement. Pt still voicing concerns that he will be there for 90 days and lose his AL room. SW expressed that he will work with therapy and get stronger and it is very unlikely that he will be at SNF or that his insurance will approve him for 90 days. SW also advised pt that once he gets stronger he has the right to leave at anytime. Pt voiced understanding. Important Message from Medicare reviewed and discussed with patient. Pt. verbalized understanding and had SW sign form as he could not due to placement of IV and his Parkinsons. Original given to patient and copy placed in patient?s chart.
--- NOTE | 2024-05-14 13:53 | SWNOTE1 ---
Pt is not leaving now due to a change in status, see nursing notes. JASON called and cancelled [facility]. JASON notified Pari at [facility]. JASON called pt's son, Peyman and notified.
--- NOTE | 2024-05-14 15:31 | PC.NURSE ---
IV placed by NICOLE Sanchez under the supervision of clinical instructor, Nadira Corado.
[2024-05-14] MEDS: DUTASTERIDE 0.5 MG CAPSULE PO (17:17)
[2024-05-14] MEDS: ACETAMINOPHEN 500 MG TABLET 1000 MG PO (17:18)
--- NOTE | 2024-05-14 18:01 | OT.DAILY ---
Occupational Therapy Daily Note OT Inpatient Daily Visit Note Start: 05/13/24 09:40 Freq: Status: Active Protocol: Document 05/14/24 17:56 [id number] (Rec: 05/14/24 18:00 [id number]) Visit Not Completed Visit Not Completed Visit Not Completed Due to: Medical instability Other Reason Visit Not Completed Pt experiencing minimal black outs but no syncope. Vitals at this time are unstable. Resting BP was 102/64, mean 76 . Maintaining airway on RA. Will make additional attempts when stable. OT Visit Details Time In/Time Out Time In 05:55 Time Out 06:00 GG. Functional Abilities and Goals-Complete for Swing Bed Patients Only [id number]. Self-Care [id number]. Mobility
[2024-05-14] MEDS: BUPROPION HCL 150 MG XL TABLET 24H PO (21:45)
[2024-05-14] MEDS: BUSPIRONE HCL 10 MG TABLET 5 MG PO (21:46)
[2024-05-14] MEDS: CYCLOBENZAPRINE HCL 10 MG TABLET PO (21:47)
[2024-05-15] VITALS (10 sets, daily range): BP systolic 60–160; BP diastolic 41–87; PULSE 68–106; TEMP 36.6–37.1; O2SAT 94–98
[2024-05-15] MEDS: CARBIDOPA/LEVODOPA 10 MG/100 MG TABLET 1 TAB PO ×3 (05:13→22:33)
--- NOTE | 2024-05-15 05:52 | P.DS_ITS ---
DS: Providers Provider Date of admission: 05/13/24 19:22 Primary care physician: DUSTIN KELLEY Consults: 05/12/24 Consult to Dietitian Routine Reason for consultation: weight loss 05/12/24 15:17 Occupational Therapy Eval and Treat Routine Reason for consultation: Only if needed for Rehab Has provider been notified: No Physical Therapy Eval and Treat Routine Reason for consultation: Eval and Treat Has provider been notified: No 05/12/24 15:22 Consult to [facility] Education Routine Reason for consult:: [facility] DS: Diagnosis Discharge Diagnosis (1) Weakness: (2) Falls frequently: (3) Parkinson disease: (4) Muscle weakness (generalized): (5) Urinary retention: Plan Admission findings: Sinus tachycardia, uncontrolled hypertension, urinary retention and severe tremor secondary to Parkinson's disease. Acute urinary retention this may be secondary to the Lexapro so we will discontinue that, continue with Cardura, Avodart, Flomax-so far no issues. Discussed his Parkinson's at some length, he has not been tried on other medications except for the Mysoline, will start patient on medications at a low dose. So far tolerating the medication. This is obviously a long-term process. Depression-tried Wellbutrin. Iron deficiency anemia-watch daily Constipation-MiraLAX daily and 1 dose of lactulose Uncontrolled hypertension-improved somewhat since admission from hospital, as needed hydralazine Unsteadiness of gait secondary to the Parkinson's-patient medically benefit to go to rehab. Hypomagnesemia-supplement GERD-continue with home medications Admission status: Patient replaced in the observational time period. Patient is treatment over the initial overnight stay, failed to improve overall. Need to continue to address medications and intensive monitoring intensive work with physical therapy. Having failed initial observational time. He will be changed to inpatient status. DS: Summary Hospital Course Hospital Course: Patient mated with bladder outlet obstruction. Also severe tremor and difficulty ambulating secondary to that. Not being treated currently with any medications for his Parkinson's. While in the hospital we did start low-dose carbidopa levodopa. Adjusted medications do not affect his prostate by stopping the Lexapro. Added Cardura for blood pressure control added Avodart to improved for the bladder outlet obstruction. He is improved. He notices his tremor is less. Still persisting but improved. Difficulty ambulating on significant weakness so unable to be discharged back to his assisted living facility. Attempted to discharge patient yesterday but had significant orthostatic hypotension. [place] this is likely related to his medications and those were discontinued. Blood pressure was elevated this morning so we did start or restart the Cardura but he never received it. Still has significant orthostatic hypotension. Will give small fluid bolus this morning, start patient on midodrine low-dose as he states he is very sensitive to medications. If stable later today he could still go to rehab. It is need to watch him closely. His orthostatic hypotension likely related to his heart concerns. Medications to this. Follow-up with PCP after discharge from rehab Status at Discharge Overall status at discharge: patient is not back to baseline Time Spent with Patient Time attestation: Total time spent providing and/or coordinating discharge services: Time spent: greater than 30 minutes Exam Constitutional Vital Signs, click to edit/add: Last Vital Signs Temp 98.1 F 05/15/24 04:00 Pulse 68 05/15/24 04:00 Resp 18 05/15/24 04:00 BP 143/81 H 05/15/24 04:00 Pulse Ox 96 05/15/24 04:00 O2 Del Method Room Air 05/15/24 04:00 Documenting provider has reviewed patient's vital signs: yes Common normals: no apparent distress (Moderate distress over her tremor) Exam limitations: no altered mental status Chest Common normals: inspection of chest normal Respiratory Common normals: normal respiratory effort, no retractions and clear to auscultation bilaterally Cardio Common normals: regular rate and regular rhythm GI Common normals: Normal to inspection, nondistended, normoactive bowel sounds present, soft to palpation and non-tender Extremity Common normals: normal to inspection, full ROM and no clubbing, cyanosis or edema Neuro Common normals: oriented x3, CN's II-XII intact bilaterally and moves all extremities (Tremor persisting but is improved from admission) Discharge Plan Discharge Disposition: [facility] Condition: Fair Discharge Medications: New cyclobenzaprine 10 mg Tablet 10 mg PO TID Qty: 90 11RF dutasteride 0.5 mg Capsule 0.5 mg PO Q24H Qty: 30 11RF bupropion HCl 150 mg Tablet Extended Release 24 Hr 150 mg PO QHS Qty: 30 11RF ondansetron 4 mg tablet,disintegrating 4 mg PO Q6H PRN (Reason: nausea and vomiting) Qty: 30 11RF carbidopa-levodopa 10-100 mg Tablet 1 tab PO TID Qty: 90 11RF midodrine 5 mg Tablet 5 mg PO Q12H Qty: 60 0RF Continued famotidine 20 mg tablet 20 mg PO BID tamsulosin 0.4 mg capsule 0.4 mg PO DAILY naproxen sodium [Aleve] 220 mg capsule 220 mg PO Q8H PRN (Reason: pain) aspirin [Adult Low Dose Aspirin] 81 mg tablet,delayed release (DR/EC) 81 mg PO DAILY docusate sodium [Colace] 100 mg capsule 100 mg PO DAILY bisacodyl [Dulcolax (bisacodyl)] 10 mg suppository 10 mg HI DAILY PRN (Reason: constipation) magnesium oxide 400 mg magnesium capsule 400 mg PO DAILY polyethylene glycol 3350 [ClearLax] 17 gram/dose powder 17 g PO DAILY multivitamin,tx-minerals Tablet 1 tab PO DAILY acetaminophen [Tylenol Extra Strength] 500 mg tablet 500 mg PO Q6H PRN (Reason: pain) diclofenac sodium 1 % gel 2 g topical TID PRN (Reason: pain, moderate) Rx Instructions: apply to single elbow, wrist or hand; for hand includes palm/fingers/back of hand sodium chloride 0.65 % aerosol,spray 1 spray intranasal QDAY atorvastatin 20 mg tablet 20 mg PO .qhs Discontinued buspirone 5 mg tablet 5 mg PO BEDTIME escitalopram oxalate 10 mg tablet 10 mg PO DAILY cyclobenzaprine 10 mg tablet 10 mg PO TID PRN (Reason: muscle pain) lisinopril-hydrochlorothiazide 20-12.5 mg tablet 1 tab PO QAM Print Language: Turkish 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 Forms: Portal Instructions
--- NOTE | 2024-05-15 08:27 | CM.NOTE ---
Rounds made with Dr. Nguyen, pt will discharge to [facility] skilled.
--- NOTE | 2024-05-15 08:48 | SWNOTE1 ---
Pt is stable for dc today. SW to set up transport.
--- NOTE | 2024-05-15 08:53 | SWNOTE1 ---
Pt is stable for dc today. SW to set up transport.
--- NOTE | 2024-05-15 09:30 | SWNOTE1 ---
JASON called and set up [facility] for 12:00. JASON notified [facility], nursing, and pt's son and patient of time. JASON send over finalized dc med rec to Winifred at [facility]. JASON took packet to the floor.
[2024-05-15] MEDS: FAMOTIDINE 20 MG TABLET PO ×2 (09:43→22:33)
[2024-05-15] MEDS: POLYETHYLENE GLYCOL 3350 17 GM POWDER PACKET PO (09:43)
[2024-05-15] MEDS: ASPIRIN 81 MG TABLET.DR PO (09:44)
[2024-05-15] MEDS: SODIUM CHLORIDE 0.65% OCEAN NASAL SPRAY 1 SPRAY NS (09:44)
[2024-05-15] MEDS: MULTIVITAMIN TABLET 1 TAB PO (09:44)
[2024-05-15] MEDS: MAGNESIUM OXIDE 400 MG TABLET PO (09:44)
[2024-05-15] MEDS: TAMSULOSIN HCL 0.4 MG CAPSULE PO (09:44)
--- NOTE | 2024-05-15 10:23 | PC.NURSE ---
science writer and PT attempted to get patient up to chair, once sitting up at bedside patient was complaining of dizziness and felt faint. After sitting for 5 minutes attempted to stand patient up, patient again felt light headed and dizziness and stated he was going to faint. Orthostatic BP's were positive. Patient was sat back down and made comfortable in bed.
--- NOTE | 2024-05-15 10:32 | SWNOTE1 ---
SW had to move pt's transportation back to 3:00.
--- NOTE | 2024-05-15 10:39 | PT.DAILY ---
Physical Therapy Daily Note PT Daily Note/Assess Start: 05/14/24 10:43 Freq: Status: Active Protocol: Document 05/15/24 10:33 VINEET (Rec: 05/15/24 10:38 VINEET [id number]) Physical Therapy Daily Note/Assessment Time In/Time Out Time In 09:45 Time Out 10:10 Pain In Pain N/A Pain Out Pain N/A Subjective Subjective Pt supine upon arrival. Nursing present throughout session. Reports feeling better while laying down. But would like to get up. Starting BP is 109/73 in supine. Therapeutic Activity Time Therapeutic Activity Minutes (minutes) 23 Therapeutic Activity Units 2 Therapeutic Activity Treatment Bed Mobility Ability Contact Guard Assist Chair Transfer Ability Minimum Assist,Moderate Assist ,2 Person Assist Therapeutic Activity Comments Pt performs supine>sit transfer without SBA only - increased time to complete. Needs edu to scoot hips forward to EOB so feet are planted on ground. Pt reports being lightheaded upon sitting . BP taken in sitting 85/52. Pt is able to sit at EOB unsupported once feet are on ground. Pt reports he needs to urinate. pt urinates in urinal while sitting at EOB - Moderate assist for this. Pt remains sitting BP taken again before standing attempt. 79/ 51. Sit>stand with Sherif+2. static standing at RW 3 min while trying to get blood pressure reading. Machine errors. Pt reports he feels like he is going to faint and is blacking out. Pt starts to require more assistance to maintain standing - ModA+2 at this time. Pt is lowered to bed. BP reads 61/40 at this time. Pt is returned to supine with MaxA+2 to advance legs and upper body. Pt remains supine with call light in reach and nursing is still present. Total Physical Therapy Time Total Therapy Minutes 23 Total Physical Therapy Units 2 Summary Daily Note Summary Orthostatic hypotension limits session today. Does tolerate about 3 min of static standing before feeling faint.
[2024-05-15] MEDS: 0.9 % SODIUM CHLORIDE 500 ML 250 ML IV (11:50)
[2024-05-15] MEDS: MIDODRINE HCL 5 MG TABLET PO ×2 (11:50→22:33)
--- NOTE | 2024-05-15 14:01 | SWNOTE1 ---
Pt is not able to be discharged today. JASON called and cancelled [facility]. JASON called [facility] and let [facility] know. [facility] is going to look in to how long the precert is good for and call SW back.
--- NOTE | 2024-05-15 14:38 | SWNOTE1 ---
Pt's authorization to go to [facility] is good thru the . SW let nurse know.
--- NOTE | 2024-05-15 14:42 | SWNOTE1 ---
SW called pt's son and he is aware that pt is not discharging.
--- NOTE | 2024-05-15 15:32 | OT.DAILY ---
Occupational Therapy Daily Note OT Inpatient Daily Visit Note Start: 05/13/24 09:40 Freq: Status: Active Protocol: Document 05/15/24 15:24 [id number] (Rec: 05/15/24 15:32 [id number]) OT Visit Details Time In/Time Out Time In 03:07 Time Out 03:22 OT Treatment Plan Subjective Subjective Pt awake and alert, asking questions for long-term care at [facility]. Agreeable to self-care tasks at this time. Objective Objective Pt sitting up in bed. With set -up of supplies Pt able to wash head and neck with cloth. Pt requested supplies for hair care. Able to successfully comb hair, reaching outside MARISOL. Pt requested assist with washing back. Pt repeated task 2x. Pt also cleaned his glasses. Assessment Assessment Pt tolerated treatment well. No syncopal episodes during session. Left sitting in bed, call light within reach. Continue OT POC. OT Outpatient Physical Therapist Timed Codes Self-Prison Management minutes ( 15 minutes) Self-Prison Management units 1
[2024-05-15] MEDS: DUTASTERIDE 0.5 MG CAPSULE PO (16:32)
[2024-05-15] MEDS: ACETAMINOPHEN 500 MG TABLET 1000 MG PO (16:32)
[2024-05-15] MEDS: DICLOFENAC SODIUM 1% 100 GM TUBE TOPICAL (17:15)
[2024-05-15] MEDS: BUPROPION HCL 150 MG XL TABLET 24H PO (22:33)
[2024-05-15] MEDS: CYCLOBENZAPRINE HCL 10 MG TABLET PO (22:33)
[2024-05-15] MEDS: ATORVASTATIN CALCIUM 20 MG TABLET PO (22:33)
[2024-05-15] MEDS: BUSPIRONE HCL 10 MG TABLET 5 MG PO (22:33)
[2024-05-16 00:16] VITALS: BP 160/84
[2024-05-16 03:56] VITALS: BP 166/94; PULSE 68; TEMP 36.6; O2SAT 96
[2024-05-16 05:05] VITALS: O2SAT 96
[2024-05-16] MEDS: CYCLOBENZAPRINE HCL 10 MG TABLET PO ×2 (05:08→13:29)
[2024-05-16] MEDS: CARBIDOPA/LEVODOPA 10 MG/100 MG TABLET 1 TAB PO ×2 (05:08→13:28)
[2024-05-16 08:00] VITALS: BP 122/80; PULSE 85; TEMP 36.7; O2SAT 98
--- NOTE | 2024-05-16 08:50 | PM.DS1 ---
DS: Providers Provider Date of admission: 05/13/24 19:22 Primary care physician: DUSTIN KELLEY Attending physician on admission: Carlos Manuel Nguyen Consults: 05/12/24 Consult to Dietitian Routine Reason for consultation: weight loss 05/12/24 15:17 Occupational Therapy Eval and Treat Routine Reason for consultation: Only if needed for Rehab Has provider been notified: No Physical Therapy Eval and Treat Routine Reason for consultation: Eval and Treat Has provider been notified: No 05/12/24 15:22 Consult to Locomotive Firer/Fireman Routine Reason for consult:: Halfway Discharging clinician: Lynn Palmer DS: Diagnosis Discharge Diagnosis (1) Weakness: (2) Falls frequently: (3) Parkinson disease: (4) Muscle weakness (generalized): (5) Urinary retention: DS: Summary Hospital Course Hospital Course: Dr. Nguyen: Patient mated with bladder outlet obstruction. Also severe tremor and difficulty ambulating secondary to that. Not being treated currently with any medications for his Parkinson's. While in the hospital we did start low-dose carbidopa levodopa. Adjusted medications do not affect his prostate by stopping the Lexapro. Added Cardura for blood pressure control added Avodart to improved for the bladder outlet obstruction. He is improved. He notices his tremor is less. Still persisting but improved. Difficulty ambulating on significant weakness so unable to be discharged back to his assisted living facility. Attempted to discharge patient yesterday but had significant orthostatic hypotension. [place] this is likely related to his medications and those were discontinued. Blood pressure was elevated this morning so we did start or restart the Cardura but he never received it. Still has significant orthostatic hypotension. Will give small fluid bolus this morning, start patient on midodrine low-dose as he states he is very sensitive to medications. If stable later today he could still go to rehab. It is need to watch him closely. His orthostatic hypotension likely related to his heart concerns. Medications to this. Follow-up with PCP after discharge from rehab Patient's lisionpril/hctz stopped, Cardura stopped. I will continue his midodrine. He will be transferred to shelter facility today for rehab. Status at Discharge Functional status at discharge: uses cane/walker Overall status at discharge: patient is progressing back to baseline Time Spent with Patient Time attestation: Total time spent providing and/or coordinating discharge services: Time spent: greater than 30 minutes Exam Narrative Exam Narrative: General: Patient is alert, and oriented to person, place and time with normal affect, proper hygiene Skin: no visible rashes, or ulcers Head: atraumatic, acephalic Eyes: PERRLA, no nystagmus present, conjunctiva clear, no scleral icterus Ears: normal gross auditory acuity Heart: Normal rate and rhythm, no murmurs/rubs/gallops Lungs: no audible wheezes, crackles and normal breath sounds all lung lopez Abdomen: Normal audible bowel sounds, no distension, No palpable masses, no organomegaly, no rebound/guarding/ or rigidity Musculoskeletal: no swelling bilateral lower extremities Neuro: CN II-X grossly intact Constitutional Vital Signs, click to edit/add: Last Vital Signs Temp 97.8 F 05/16/24 03:56 Pulse 68 05/16/24 03:56 Resp 18 05/16/24 03:56 BP 166/94 H 05/16/24 03:56 Pulse Ox 96 05/16/24 05:05 O2 Del Method Room Air 05/16/24 05:05 Discharge Plan Discharge Disposition: Xfer SNF Condition: Fair Discharge Medications: New bupropion HCl 150 mg Tablet Extended Release 24 Hr 150 mg PO QHS Qty: 30 11RF ondansetron 4 mg tablet,disintegrating 4 mg PO Q6H PRN (Reason: nausea and vomiting) Qty: 30 11RF carbidopa-levodopa 10-100 mg Tablet 1 tab PO TID Qty: 90 11RF midodrine 5 mg Tablet 5 mg PO Q12H Qty: 60 0RF Continued famotidine 20 mg tablet 20 mg PO BID tamsulosin 0.4 mg capsule 0.4 mg PO DAILY naproxen sodium [Aleve] 220 mg capsule 220 mg PO Q8H PRN (Reason: pain) aspirin [Adult Low Dose Aspirin] 81 mg tablet,delayed release (DR/EC) 81 mg PO DAILY docusate sodium [Colace] 100 mg capsule 100 mg PO DAILY bisacodyl [Dulcolax (bisacodyl)] 10 mg suppository 10 mg NV DAILY PRN (Reason: constipation) magnesium oxide 400 mg magnesium capsule 400 mg PO DAILY polyethylene glycol 3350 [ClearLax] 17 gram/dose powder 17 g PO DAILY multivitamin,tx-minerals Tablet 1 tab PO DAILY acetaminophen [Tylenol Extra Strength] 500 mg tablet 500 mg PO Q6H PRN (Reason: pain) diclofenac sodium 1 % gel 2 g topical TID PRN (Reason: pain, moderate) Rx Instructions: apply to single elbow, wrist or hand; for hand includes palm/fingers/back of hand sodium chloride 0.65 % aerosol,spray 1 spray intranasal QDAY atorvastatin 20 mg tablet 20 mg PO .qhs Discontinued buspirone 5 mg tablet 5 mg PO BEDTIME escitalopram oxalate 10 mg tablet 10 mg PO DAILY cyclobenzaprine 10 mg tablet 10 mg PO TID PRN (Reason: muscle pain) lisinopril-hydrochlorothiazide 20-12.5 mg tablet 1 tab PO QAM Print Language: Czech [employer]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 Forms: Portal Instructions Discharge Date/Time: 05/16/24 14:08 Discharge location: [facility]
[2024-05-16] MEDS: FAMOTIDINE 20 MG TABLET PO (09:13)
[2024-05-16] MEDS: MIDODRINE HCL 5 MG TABLET PO ×2 (09:13→13:29)
[2024-05-16] MEDS: MULTIVITAMIN TABLET 1 TAB PO (09:13)
[2024-05-16] MEDS: ACETAMINOPHEN 500 MG TABLET 1000 MG PO (09:13)
[2024-05-16] MEDS: MAGNESIUM OXIDE 400 MG TABLET PO (09:13)
[2024-05-16] MEDS: SODIUM CHLORIDE 0.65% OCEAN NASAL SPRAY 1 SPRAY NS (09:14)
[2024-05-16] MEDS: ASPIRIN 81 MG TABLET.DR PO (09:14)
[2024-05-16] MEDS: TAMSULOSIN HCL 0.4 MG CAPSULE PO (09:14)
[2024-05-16] MEDS: POLYETHYLENE GLYCOL 3350 17 GM POWDER PACKET PO (09:14)
[2024-05-16 09:59] VITALS: O2SAT 95
[2024-05-16 12:00] VITALS: BP 96/63; PULSE 110; TEMP 36.7; O2SAT 98
--- NOTE | 2024-05-16 13:27 | PC.NURSE ---
Attempted to call [facility] at [phone].. No answer
== END 2024-05-16 14:08 | DRG 700 ==
LOC: ER 10:49 → MS 14:02
PROVIDERS: Family Medicine; Admitting Provider Family Medicine; Emergency Provider Emergency Medicine; PCP Family Medicine; Visit Provider Family Medicine
DX: N32.0 Bladder-neck obstruction (principal); G20.A1 Parkinson's disease without dyskinesia, without mention of fluctuations; R00.0 Tachycardia, unspecified; I10 Essential (primary) hypertension; F32.A Depression, unspecified; D50.9 Iron deficiency anemia, unspecified; K59.00 Constipation, unspecified; E83.42 Hypomagnesemia; K21.9 Gastro-esophageal reflux disease without esophagitis; M62.81 Muscle weakness (generalized); I95.2 Hypotension due to drugs; T50.915A Adverse effect of multiple unspecified drugs, medicaments and biological substances, initial encounter; Z91.81 History of falling; Z90.49 Acquired absence of other specified parts of digestive tract; Z90.89 Acquired absence of other organs; Z79.899 Other long term (current) drug therapy; Z87.891 Personal history of nicotine dependence; Z79.82 Long term (current) use of aspirin
CPT/HCPCS: 36415; 51798; 70450; 74176; 80048; 80053; 81003; 82607; 82746; 83605; 83735; 84436; 84443; 85025; 94761; 96374; 97110; 97161; 97165; 97530; 97535; 99285; G0378; J2060